=== PATIENT | female | born 1970 | race Caucasian/White ===

== ENCOUNTER 2024-06-13 23:39 | Emergency (ER) | payer BC, SELFPAY ==
[2024-06-13 23:42] VITALS: BP 147/98; PULSE 96; RESP 16; TEMP 35.8; O2SAT 97
--- NOTE | 2024-06-13 23:51 | ED_ITS ---
HPI - General Adult General Chief complaint: Unspecified Complaint, Adult Stated complaint: dehydrated Time Seen by Provider: 06/13/24 23:43 History of Present Illness HPI narrative: Patient is a 53-year-old woman who is on Ozempic for weight loss. She get some mail order Ozempic in injected some 2 days ago. She has had approximately 36 hours of nausea vomiting and anorexia. No pain. No fevers no chills no night sweats no cough no shortness of breath. It appears she takes much further medications. She has had no dysuria. She comes in feeling dehydrated. She would like some IV fluids. Related Data Home Medications ?Medication ?Instructions ?Recorded ?Confirmed ondansetron 4 mg disintegrating 4 mg PO DAILY 06/13/24 06/13/24 tablet Allergies Allergy/AdvReac Type Severity Reaction Status Date / Time No Known Drug Allergies Allergy Verified 06/13/24 23:46 Review of Systems Status of ROS: Reports: 10 or more systems reviewed and unremarkable except as noted in History and below Exam Narrative: Exam Narrative: EXAM GENERAL: Patient appears comfortable and well. EYES: No scleral icterus. LYMPH: No supraclavicular or cervical lymphadenopathy. SKIN: Visible skin seen during exam normal or with benign process only. EXT: No dependent lower extremity pedal edema. HEART: Regular rate and rhythm with no murmurs, rubs, or gallops. LUNGS: Clear to auscultation bilaterally with no crackles or wheezes. ABD: Soft, non tender, non distended. PSYCH: Good eye contact, speech is not pressured. Const: Vital Signs, click to edit/add: Vital Signs - 24 hr 06/13/24 23:42 Temperature 96.5 F L Pulse Rate [Left P ulse Oximeter] 96 Respiratory Rate 16 Blood Pressure [Ri ght Upper Arm] 147/98 H Pulse Oximetry 97 Oxygen Delivery Me thod Room Air Course Course ED Course: Patient seen and examined. IV started. Will collect CMP CBC. Vital Signs Vital signs: Initial Vital Signs Temperature 96.5 F L 06/13/24 23:42 Temperature Source Temporal Artery Scan 06/13/24 23:42 Pulse Rate 96 06/13/24 23:42 Pulse Rhythm Regular 06/13/24 23:42 Respiratory Rate 16 06/13/24 23:42 Blood Pressure 147/98 H 06/13/24 23:42 Blood Pressure Mean 114 H 06/13/24 23:42 Blood Pressure Position Sitting 06/13/24 23:42 Pulse Oximetry 97 06/13/24 23:42 Oxygen Delivery Method Room Air 06/13/24 23:42 Vital Signs Temperature 96.5 F L 06/13/24 23:42 Pulse Rate 96 06/13/24 23:42 Respiratory Rate 16 06/13/24 23:42 Blood Pressure 147/98 H 06/13/24 23:42 Pulse Oximetry 97 06/13/24 23:42 Oxygen Delivery Method Room Air 06/13/24 23:42 Temperature 96.5 F L 06/13/24 23:42 Pulse Rate 96 06/13/24 23:42 Respiratory Rate 16 06/13/24 23:42 Blood Pressure 147/98 H 06/13/24 23:42 Pulse Oximetry 97 06/13/24 23:42 Oxygen Delivery Method Room Air 06/13/24 23:42 Medications Administered Medications: Generic Name Dose Route Start Last Admin Trade Name Freq PRN Reason Stop Dose Admin Sodium Chloride 500 mls @ 500 mls/hr 06/14/24 00:49 06/14/24 01:03 0.9 % Sodium Chloride 500 Ml IV 06/14/24 01:48 500 mls/hr .Q1H ONE Administration Discontinued Medications Generic Name Dose Route Start Last Admin Trade Name Freq PRN Reason Stop Dose Admin Sodium Chloride 1,000 mls @ 1,000 mls/hr 06/13/24 23:53 06/14/24 01:04 0.9 % Sodium Chloride 1000 Ml IV 06/14/24 00:52 Infused .Q1H KRUNAL Infusion Ondansetron HCl 4 mg 06/13/24 23:54 06/14/24 00:00 Ondansetron 2 Mg/Ml Inj IVP 06/13/24 23:55 4 mg ONCE ONE Administration Ondansetron HCl 4 mg 06/14/24 01:02 06/14/24 01:06 Ondansetron 2 Mg/Ml Inj IVP 06/14/24 01:03 4 mg ONCE ONE Administration Medical Decision Making MDM Narrative Medical decision making narrative: Patient is a 53-year-old woman who is using Ozempic for weight loss. She comes in tonight with profound nausea and vomiting. We did assess her laboratory studies and find her to be medically stable. I did give her L and half normal saline as well as Zofran with resolution of her symptoms. She is discharged home with Zofran p.r.n. and will follow-up as needed. Would hold any further doses of Ozempic. Lab Data Labs: Lab Results 06/13/24 Range/Units 23:57 WBC 14.28 H (4.50-11.00) K/uL RBC 4.70 (4.00-5.20) m/uL Hgb 13.9 (12.0-16.0) gm/dL Hct 41.1 (33.0-51.0) % MCV 87 (80-100) fL MCH 30 (26-34) pg MCHC 34 (32-36) gm/dL RDW Coeff of [place] 12.6 (11.5-15.5) % Plt Count 374 (140-440) K/uL Neut % (Auto) 83.0 H (42.0-72.0) % Lymph % (Auto) 11.6 L (20-44) % [place] % (Auto) 3.9 (0.0-11.0) % Eos % (Auto) 0.1 (0.0-7.0) % Baso % (Auto) 0.2 (0.0-3.0) % Neut # (Auto) 11.90 H (1.7-7.0) K/uL Lymph # (Auto) 1.70 (0.90-2.90) K/uL [place] # (Auto) 0.60 (0.00-0.90) K/UL Eos # (Auto) 0.00 (0.00-0.50) K/uL Baso # (Auto) 0.00 (0.00-0.30) K/uL Abs Immat Gran (auto) 0.20 (0.00-0.30) K/uL Imm/Tot Granulo (auto) 1.2 % Sodium 139 (135-149) mmol/L Potassium 3.6 (3.6-5.1) mmol/L Chloride 104 (96-114) mmol/L BUN 20 (7-30) mg/dL Creatinine 0.6 (0.5-1.5) mg/dL Estimated Creat Clear 108.13 Estimated GFR 107 ml/min Discharge Plan Discharge Clinical Impression: Dehydration Patient Disposition: Home, Self-Care Condition: Stable Instructions: Dehydration (ED) Additional Instructions: Zofran as directed Consider stopping Ozempic Follow-up with your doctor as needed. Activity Level: No Restrictions Discharge Diet: Regular Prescriptions: No Action ondansetron 4 mg tablet,disintegrating 4 mg PO DAILY Follow Up/Referrals: Provider,Not a Local [Primary Care Provider] - Stand Alone Forms: [employer] Info Instructions
[2024-06-14] MEDS: 0.9 % SODIUM CHLORIDE 1000 ml 1,000 ML IV
[2024-06-14 00:08] LABS: Basophils Percent Auto 0.2 % (0.0-3.0); Eosinophils Percent Auto 0.1 % (0.0-7.0); Hematocrit 41.1 % (33.0-51.0); Hemoglobin* 13.9 gm/dL (12.0-16.0); Immature Granulocytes Pct Auto 1.2 %; Lymphocytes Percent Auto 11.6 % (20-44); Mean Corpuscular HGB Conc 34 gm/dL (32-36); Mean Corpuscular Hemoglobin 30 pg (26-34); Mean Corpuscular Volume 87 fL (80-100); Monocytes Percent Auto 3.9 % (0.0-11.0); Platelet Count* 374 K/uL (140-440); RDW Coefficient of Variation % 12.6 % (11.5-15.5); White Blood Count* 14.28 K/uL (4.50-11.00)
[2024-06-14 00:11] LABS: Slide Review Reflex No
[2024-06-14] MEDS: 0.9 % SODIUM CHLORIDE 500 ML 500 ML IV (01:03)
[2024-06-14] MEDS: ONDANSETRON 2 MG/ML inj 4 MG IVP ×2 (01:06)
[2024-06-14 01:24] LABS: Chloride* 104 mmol/L (96-114)
[2024-06-14 01:25] LABS: Potassium* 3.6 mmol/L (3.6-5.1); Sodium* 139 mmol/L (135-149)
[2024-06-14 01:27] LABS: Aspartate Amino Transferase* 26 U/L (12-35); Bilirubin Total* 0.9 mg/dL (0.1-1.5); Blood Urea Nitrogen* 20 mg/dL (7-30); Creatinine* 0.6 mg/dL (0.5-1.5); Est. Creatinine Clearance* 108.13; Estimated Glomerular Filt Rate 107 ml/min
[2024-06-14 01:28] LABS: Alanine Aminotransferase* 27 U/L (4-35); Alkaline Phosphatase* 79 U/L (40-150); Anion Gap 13 mEq/L (7-15); Calcium* 9.8 mg/dL (8.4-10.6); Carbon Dioxide* 22 mmol/L (20-32); Glucose* 110 mg/dL (60-115); Total Protein* 8.2 g/dL (6.0-8.3)
[2024-06-14 01:42] LABS: Albumin* 4.8 g/dL (3.3-5.0)
== END 2024-06-14 02:41 | disposition home or self-care (01) ==
PROVIDERS: Emergency Provider Internal Medicine
DX: E86.0 Dehydration (principal)
CPT/HCPCS: 36415; 80053; 85025; 96361; 96374; 96376; 99283; 99284; J2405; J7030